=== PATIENT | male | born 1955 | race Caucasian/White ===

== ENCOUNTER → 2016-09-24 | Outpatient (CLI) | payer MEDICARE | END | disposition home or self-care (01) | LOC: CFH 08:14 | PROVIDERS: ATTEND Internal Medicine Pulmonary Disease | DX: J43.2 Centrilobular emphysema (principal); J84.10 Pulmonary fibrosis, unspecified; J98.11 Atelectasis | CPT/HCPCS: 71250 ==

== ENCOUNTER → 2017-04-20 | Outpatient (CLI) | payer MEDICARE ==
[~2017-04-20] MED LIST: ALBU18HF INH; AMOX1TAB12 PO; FLUT12HF3 IH; FLUT9.9S NAS; LORA10TA62 PO; PRED20TA PO; TIOT18CA INH; TIOT4MIS5 INH
== END | disposition home or self-care (01) ==
LOC: CFH 09:32
PROVIDERS: ATTEND Internal Medicine
DX: R91.8 Other nonspecific abnormal finding of lung field (principal); M48.54XA Collapsed vertebra, not elsewhere classified, thoracic region, initial encounter for fracture
CPT/HCPCS: 71020

== ENCOUNTER 2018-04-02 13:06 | Inpatient (IN) | payer MEDICARE ==
[~2018-04-02] VITALS: Ht 180.3 cm; Wt 61.0 kg
[2018-04-02] MEDS ORDERED: ALBUTEROL/IPRATROPIUM 2.5MG/0.5MG, 3 ML ONE (13:14)
[2018-04-02] MEDS ORDERED: SODIUM CHLORIDE FLUSH 10ML SYR IVF ONE (13:30)
[2018-04-02] MEDS ORDERED: methylPREDNISolone SOD SUCC 125 MG/2 ML IVP ONE (13:30)
[2018-04-02] MEDS ORDERED: methylPREDNISolone SOD SUCC 125 MG/2 ML ONE (13:34)
[2018-04-02] MEDS ORDERED: ALBU8.5H8 IH (13:42)
[2018-04-02] MEDS ORDERED: MONT10TA9 PO (13:42)
[2018-04-02 13:44] LABS: BASOPHILS # (AUTO) 0.02 x10^3/uL (0-0.1); BASOPHILS % (AUTO) 0 % (0-1); EOSINOPHILS # (AUTO) 0.01 x10^3/uL (0-0.4); EOSINOPHILS % (AUTO) 0 % (1-7); LYMPHOCYTES # (AUTO) 0.57 x10^3/uL (1-3.4); LYMPHOCYTES % (AUTO) 10 % (22-44); MD NO; MEAN CORPUSCULAR HEMOGLOBIN 33.2 pg (27.5-34.5); MEAN CORPUSCULAR HGB CONC 33.7 g/dL (33.2-36.2); MEAN CORPUSCULAR VOLUME 98.6 fL (81-97); MEAN PLATELET VOLUME 8.5 fL (7.4-10.4); MONOCYTES # (AUTO) 0.51 x10^3/uL (0.2-0.8); MONOCYTES % (AUTO) 9 % (2-9); NEUTROPHILS # (AUTO) 4.83 x10^3/uL (1.8-6.8); NEUTROPHILS % (AUTO) 81 % (42-75); PLATELET COUNT 209 x10^3/uL (130-400); RED CELL DISTRIBUTION WIDTH 14.9 % (9.4-14.8)
[2018-04-02 13:55] LABS: ALBUMIN 3.8 g/dL (3.4-5.0); ANION GAP 6 mmol/L (5-15); CALCIUM 9.1 mg/dL (8.5-10.1); CHLORIDE 102 mmol/L (98-107)
[2018-04-02 14:02] LABS: ALANINE AMINOTRANSFERASE 70 U/L (12-78); ALKALINE PHOSPHATASE 149 U/L (45-117); BILIRUBIN,TOTAL 0.7 mg/dL (0.2-1.0); CREATININE 0.69 mg/dL (0.7-1.3); TOTAL PROTEIN 7.4 g/dL (6.4-8.2); TROPONIN I < 0.015 ng/mL (0.000-0.045)
[2018-04-02] MEDS ORDERED: DOXYCYCLINE 100 MG in DEXTROSE 5% 250 ML IV ONE (14:30)
[2018-04-02] MEDS: SODIUM CHLORIDE 0.9% 1,000 ML IV SCH (14:32)
[2018-04-02 14:44] LABS: RAPID INFLUENZA A Negative (Negative); RAPID INFLUENZA B Negative (Negative)
[2018-04-02] MEDS: ALBUTEROL/IPRATROPIUM 2.5MG/0.5MG, 3 ML NPPB SCH (14:52)
[2018-04-02] MEDS ORDERED: ACETAMINOPHEN 325 MG TABLET PO PRN (15:00)
[2018-04-02] MEDS ORDERED: ENALAPRILAT 1.25 MG/ML, 2ML IVPush PRN (15:00)
[2018-04-02 15:59] VITALS: BP 117/75
[2018-04-02] MEDS ORDERED: IPRATROPIUM 0.5 MG/2.5 ML INHA NPPB SCH (16:00)
[2018-04-02] MEDS: AZITHROMYCIN 500 MG in SODIUM CHLORIDE 0.9% 250 ML IV SCH (17:50)
[2018-04-02] MEDS: ENOXAPARIN 40 MG/0.4 ML SQ SCH (17:51)
[2018-04-02] MEDS: GUAIFENESIN 200 MG TABLET PO SCH ×2 (17:51→20:17)
[2018-04-02] MEDS: ALBUTEROL/IPRATROPIUM 2.5MG/0.5MG, 3 ML HHN SCH (19:54)
[2018-04-02] MEDS: methylPREDNISolone SOD SUCC 125 MG/2 ML IVPush SCH (20:15)
[2018-04-02 21:07] VITALS: BP 105/71
[2018-04-03 01:04] VITALS: BP 113/78
[2018-04-03] MEDS: methylPREDNISolone SOD SUCC 125 MG/2 ML IVPush SCH ×4 (02:40→20:00)
[2018-04-03] MEDS: SODIUM CHLORIDE 0.9% 1,000 ML IV SCH (02:40)
[2018-04-03] MEDS: ALBUTEROL/IPRATROPIUM 2.5MG/0.5MG, 3 ML HHN SCH ×2 (03:00→10:00)
[2018-04-03] MEDS: GUAIFENESIN 200 MG TABLET PO SCH ×4 (05:15→20:22)
[2018-04-03 05:18] LABS: BASOPHILS % (AUTO) 0 % (0-1); EOSINOPHILS % (AUTO) 0 % (1-7); LYMPHOCYTES # (AUTO) 0.38 x10^3/uL (1-3.4); LYMPHOCYTES % (AUTO) 8 % (22-44); MD NO; MEAN CORPUSCULAR HEMOGLOBIN 33.5 pg (27.5-34.5); MEAN CORPUSCULAR HGB CONC 33.9 g/dL (33.2-36.2); MEAN PLATELET VOLUME 8.8 fL (7.4-10.4); MONOCYTES # (AUTO) 0.09 x10^3/uL (0.2-0.8); MONOCYTES % (AUTO) 2 % (2-9); NEUTROPHILS # (AUTO) 4.42 x10^3/uL (1.8-6.8); NEUTROPHILS % (AUTO) 90 % (42-75); PLATELET COUNT 181 x10^3/uL (130-400); RED BLOOD COUNT 4.58 x10^6/uL (4.38-5.82); RED CELL DISTRIBUTION WIDTH 15.1 % (9.4-14.8)
[2018-04-03 05:21] LABS: ALANINE AMINOTRANSFERASE 59 U/L (12-78); ANION GAP 9 mmol/L (5-15); CALCIUM 8.2 mg/dL (8.5-10.1); CHLORIDE 106 mmol/L (98-107); CREATININE 0.46 mg/dL (0.7-1.3)
[2018-04-03 05:23] LABS: ALKALINE PHOSPHATASE 117 U/L (45-117); BILIRUBIN,TOTAL 0.4 mg/dL (0.2-1.0); TOTAL PROTEIN 6.6 g/dL (6.4-8.2)
[2018-04-03 06:47] VITALS: BP 128/87
[2018-04-03] MEDS: MONTELUKAST 10 MG TABLET PO SCH (08:43)
[2018-04-03] MEDS ORDERED: ALBUTEROL/IPRATROPIUM 2.5MG/0.5MG, 3 ML NPPB PRN (10:30)
[2018-04-03 12:20] VITALS: BP 124/81
[2018-04-03] MEDS: ALBUTEROL/IPRATROPIUM 2.5MG/0.5MG, 3 ML NPPB SCH ×4 (14:15→22:07)
[2018-04-03] MEDS: ENOXAPARIN 40 MG/0.4 ML SQ SCH (14:24)
[2018-04-03] MEDS ORDERED: SODIUM CHLORIDE 0.9% 1,000 ML IV SCH (14:32)
[2018-04-03] MEDS: AZITHROMYCIN 500 MG in SODIUM CHLORIDE 0.9% 250 ML IV SCH (14:43)
[2018-04-03 19:09] VITALS: BP 130/81
[2018-04-04 01:26] VITALS: BP 123/72
[2018-04-04] MEDS: ALBUTEROL/IPRATROPIUM 2.5MG/0.5MG, 3 ML NPPB SCH ×6 (01:57→22:02)
[2018-04-04] MEDS: methylPREDNISolone SOD SUCC 125 MG/2 ML IVPush SCH ×4 (02:00→20:00)
[2018-04-04] MEDS: GUAIFENESIN 200 MG TABLET PO SCH ×4 (05:16→20:43)
[2018-04-04 06:41] VITALS: BP 116/77
[2018-04-04] MEDS: MONTELUKAST 10 MG TABLET PO SCH (08:32)
[2018-04-04 12:25] VITALS: BP 124/84
[2018-04-04] MEDS: AZITHROMYCIN 500 MG in SODIUM CHLORIDE 0.9% 250 ML IV SCH (15:00)
[2018-04-04] MEDS: ENOXAPARIN 40 MG/0.4 ML SQ SCH (15:00)
[2018-04-04 21:21] VITALS: BP 125/85
[2018-04-04] MEDS: SODIUM CHLORIDE NASAL SPRAY 45ML BOTTLE NAS PRN (22:38)
[2018-04-04] MEDS: TRAZODONE 50MG TABLET PO PRN (22:38)
[2018-04-05] MEDS: methylPREDNISolone SOD SUCC 125 MG/2 ML IVPush SCH ×3 (02:00→18:00)
[2018-04-05 02:06] VITALS: BP 120/76
[2018-04-05] MEDS: ALBUTEROL/IPRATROPIUM 2.5MG/0.5MG, 3 ML NPPB SCH ×7 (02:30→22:17)
[2018-04-05] MEDS: GUAIFENESIN 200 MG TABLET PO SCH ×4 (05:03→21:00)
[2018-04-05 06:42] VITALS: BP 125/83
[2018-04-05] MEDS: MONTELUKAST 10 MG TABLET PO SCH (09:00)
[2018-04-05] MEDS: SODIUM CHLORIDE NASAL SPRAY 45ML BOTTLE NAS PRN (10:50)
[2018-04-05 12:43] VITALS: BP 131/78
[2018-04-05] MEDS: ENOXAPARIN 40 MG/0.4 ML SQ SCH (15:00)
[2018-04-05] MEDS: AZITHROMYCIN 500 MG in SODIUM CHLORIDE 0.9% 250 ML IV SCH (15:00)
[2018-04-05 19:54] VITALS: BP 126/78
[2018-04-05] MEDS: TRAZODONE 50MG TABLET PO PRN (22:51)
[2018-04-06] MEDS: methylPREDNISolone SOD SUCC 125 MG/2 ML IVPush SCH (02:00)
[2018-04-06 02:11] VITALS: BP 116/71
[2018-04-06] MEDS: ALBUTEROL/IPRATROPIUM 2.5MG/0.5MG, 3 ML NPPB SCH ×6 (02:37→22:56)
[2018-04-06] MEDS: GUAIFENESIN 200 MG TABLET PO SCH (05:39)
[2018-04-06] MEDS ORDERED: AZITHROMYCIN 500 MG TABLET PO ONE (07:30)
[2018-04-06] MEDS ORDERED: hydrOXyzine 50MG TABLET PO PRN (07:30)
[2018-04-06 07:45] VITALS: BP 102/56
[2018-04-06] MEDS: MONTELUKAST 10 MG TABLET PO SCH (08:03)
[2018-04-06] MEDS: GUAIFENESIN ER 600 MG TABLET PO SCH ×2 (08:03→20:38)
[2018-04-06] MEDS ORDERED: NAPROXEN 500 MG TABLET PO SCH (12:30)
[2018-04-06 12:58] VITALS: BP 112/74
[2018-04-06] MEDS ORDERED: methylPREDNISolone SOD SUCC 125 MG/2 ML IVPush SCH (14:00)
[2018-04-06] MEDS: ENOXAPARIN 40 MG/0.4 ML SQ SCH (17:04)
[2018-04-06 20:00] VITALS: BP 131/74
[2018-04-06] MEDS: TRAZODONE 50MG TABLET PO PRN (20:44)
[2018-04-07 00:49] VITALS: BP 124/71
[2018-04-07] MEDS: ALBUTEROL/IPRATROPIUM 2.5MG/0.5MG, 3 ML NPPB SCH ×4 (02:24→15:25)
[2018-04-07 05:48] LABS: BASOPHILS # (AUTO) 0.02 x10^3/uL (0-0.1); BASOPHILS % (AUTO) 0 % (0-1); EOSINOPHILS % (AUTO) 0 % (1-7); LYMPHOCYTES # (AUTO) 1.04 x10^3/uL (1-3.4); LYMPHOCYTES % (AUTO) 16 % (22-44); MD NO; MEAN CORPUSCULAR HEMOGLOBIN 33.2 pg (27.5-34.5); MEAN CORPUSCULAR HGB CONC 33.4 g/dL (33.2-36.2); MEAN CORPUSCULAR VOLUME 99.5 fL (81-97); MEAN PLATELET VOLUME 8.6 fL (7.4-10.4); MONOCYTES # (AUTO) 0.86 x10^3/uL (0.2-0.8); MONOCYTES % (AUTO) 13 % (2-9); NEUTROPHILS # (AUTO) 4.72 x10^3/uL (1.8-6.8); NEUTROPHILS % (AUTO) 71 % (42-75); PLATELET COUNT 190 x10^3/uL (130-400); RED BLOOD COUNT 4.31 x10^6/uL (4.38-5.82)
[2018-04-07 05:59] LABS: ALBUMIN 2.7 g/dL (3.4-5.0); ANION GAP 5 mmol/L (5-15); CALCIUM 8.2 mg/dL (8.5-10.1); CHLORIDE 104 mmol/L (98-107)
[2018-04-07 06:04] LABS: ALANINE AMINOTRANSFERASE 88 U/L (12-78); ALKALINE PHOSPHATASE 70 U/L (45-117); BILIRUBIN,TOTAL 0.3 mg/dL (0.2-1.0); CREATININE 0.38 mg/dL (0.7-1.3); TOTAL PROTEIN 5.5 g/dL (6.4-8.2)
[2018-04-07 07:43] VITALS: BP 122/76
[2018-04-07] MEDS: GUAIFENESIN ER 600 MG TABLET PO SCH (08:59)
[2018-04-07] MEDS: MONTELUKAST 10 MG TABLET PO SCH (08:59)
[2018-04-07] MEDS ORDERED: METH4TAB2 PO (10:57)
[2018-04-07 12:53] VITALS: BP 124/77
== END 2018-04-07 17:06 | disposition home or self-care (01) | DRG 189 ==
LOC: ED 13:42 → EDIP 14:02 → 4WST 15:44 → 4EST 04-06 10:05 → DCLOUNGE 04-07 16:50
PROVIDERS: ADMIT Hospitalist; ATTEND Hospitalist
DX: J96.21 Acute and chronic respiratory failure with hypoxia (principal); J44.1 Chronic obstructive pulmonary disease with (acute) exacerbation; E87.1 Hypo-osmolality and hyponatremia; J44.0 Chronic obstructive pulmonary disease with (acute) lower respiratory infection; E44.1 Mild protein-calorie malnutrition; Z68.1 Body mass index [BMI] 19.9 or less, adult; J20.9 Acute bronchitis, unspecified; Z87.891 Personal history of nicotine dependence; Z99.81 Dependence on supplemental oxygen; Z88.8 Allergy status to other drugs, medicaments and biological substances; Z87.01 Personal history of pneumonia (recurrent); D75.89 Other specified diseases of blood and blood-forming organs; R00.0 Tachycardia, unspecified
CPT/HCPCS: 36415; 71045; 80053; 83605; 84145; 84484; 85025; 87040; 87400; 93005; 94640; 99291; G0378; J0456; J1650; J7060; J7620; J2930; J7030; J7050; J7512

== ENCOUNTER 2018-09-09 17:28 | Inpatient (IN) | payer MEDICARE ==
[~2018-09-09] VITALS: Ht 177.8 cm; Wt 62.3 kg
[~2018-09-09 17:28] MED LIST changes: +ALBU8.5H8 IH; +BENZ-17 PO; +CEFD300C37 PO; +DOXY100T PO; +GUAI600T31 PO; +METH4TAB2 PO; +MONT10TA9 PO
--- NOTE | 2018-09-09 17:35 | NUR ---
pt jayson, brought from pcp. report received from ems. pt c/o sob with cough and bilateral chest pain, worse with coughing x 5 days. temp 102.4 lpta per ems. pt given 1000mg tylenol and 500ml ns lpta. ekg taken on arrival by edt. all monitors in place. call light in reach. johanna sinha at bedside for evaluation.
[2018-09-09] MEDS ORDERED: IBUPROFEN 600 MG TABLET PO ONE (18:00)
[2018-09-09] MEDS ORDERED: SODIUM CHLORIDE 0.9% 1,000ML IVBOLUS ONE (18:00)
[2018-09-09] MEDS ORDERED: methylPREDNISolone SOD SUCC 125 MG/2 ML IVP ONE (18:00)
[2018-09-09] MEDS ORDERED: ALBUTEROL/IPRATROPIUM 2.5MG/0.5MG, 3 ML NPPB ONE (18:00)
[2018-09-09] MEDS ORDERED: PLEASE ENTER HEIGHT AND WEIGHT MC SCH (18:00)
[2018-09-09] MEDS ORDERED: ALBUTEROL/IPRATROPIUM 2.5MG/0.5MG, 3 ML ONE (18:04)
[2018-09-09] MEDS ORDERED: IBUPROFEN 800 MG TABLET ONE (18:12)
[2018-09-09] MEDS ORDERED: methylPREDNISolone SOD SUCC 125 MG/2 ML ONE (18:12)
[2018-09-09] MEDS ORDERED: fluticasone NAS (18:32)
[2018-09-09] MEDS ORDERED: PRIM50TA34 PO (18:32)
[2018-09-09] MEDS ORDERED: BUDE10.2 INH (18:32)
[2018-09-09] MEDS ORDERED: spiriva INH (18:32)
[2018-09-09] MEDS ORDERED: albuterol neb NEB (18:32)
[2018-09-09] MEDS ORDERED: ALBU8.5H8 INH (18:32)
[2018-09-09] MEDS ORDERED: LORA10TA62 PO (18:32)
[2018-09-09 18:35] LABS: BASOPHILS # (AUTO) 0.03 x10^3/uL (0-0.1); BASOPHILS % (AUTO) 1 % (0-1); EOSINOPHILS # (AUTO) 0.07 x10^3/uL (0-0.4); EOSINOPHILS % (AUTO) 1 % (1-7); LYMPHOCYTES # (AUTO) 0.76 x10^3/uL (1-3.4); LYMPHOCYTES % (AUTO) 12 % (22-44); MD NO; MEAN CORPUSCULAR HEMOGLOBIN 33.2 pg (27.5-34.5); MEAN CORPUSCULAR VOLUME 97.8 fL (81-97); MEAN PLATELET VOLUME 7.9 fL (7.4-10.4); MONOCYTES # (AUTO) 0.69 x10^3/uL (0.2-0.8); MONOCYTES % (AUTO) 11 % (2-9); NEUTROPHILS % (AUTO) 75 % (42-75); PLATELET COUNT 265 x10^3/uL (130-400); RED BLOOD COUNT 3.36 x10^6/uL (4.38-5.82); RED CELL DISTRIBUTION WIDTH 14.7 % (9.4-14.8)
--- NOTE | 2018-09-09 18:40 | NUR ---
pt educated regarding need for clean catch ua, urinal provided at bedside. pt verbalizes understanding of RN instructions. pt a&o, resps even, mildly labored, work of breathing eased since rt tx. pt instructed not to get up without staff assist, bed locked and in lowest position, call light in reach.
[2018-09-09 18:45] LABS: ALANINE AMINOTRANSFERASE 23 U/L (12-78); ALBUMIN 2.5 g/dL (3.4-5.0); ANION GAP 6 mmol/L (5-15); CALCIUM 8.2 mg/dL (8.5-10.1); CHLORIDE 105 mmol/L (98-107); CREATININE 0.42 mg/dL (0.7-1.3)
[2018-09-09 18:50] LABS: ALKALINE PHOSPHATASE 110 U/L (45-117); BILIRUBIN,TOTAL 0.3 mg/dL (0.2-1.0); TROPONIN I < 0.015 ng/mL (0.000-0.045)
[2018-09-09] MEDS ORDERED: OMNIPAQUE 350 MG/ML, 100ML BOTTLE ONE (19:00)
--- NOTE | 2018-09-09 19:31 | NUR ---
PT BACK FROM CT. JANI.
--- NOTE | 2018-09-09 19:45 | NUR ---
REPORT GIVEN TO NATI ROSENBERG.
[2018-09-09] MEDS ORDERED: LASIX PO (20:40)
--- NOTE | 2018-09-09 20:58 | NUR ---
PT A&O, RESPS EVEN AND UNLABORED. PT DENYING URGE TO VOID, REFUSES TO ATTEMPT. EDMD BROWN NOTIFIED.
[2018-09-09] MEDS ORDERED: AZITHROMYCIN 500 MG in SODIUM CHLORIDE 0.9% 250 ML IV ONE (21:00)
[2018-09-09] MEDS ORDERED: CEFTRIAXONE PMX 1GM/50ML 50 ML IV ONE (21:00)
[2018-09-09] MEDS ORDERED: FUROSEMIDE 20 MG/2 ML IV ONE (21:00)
[2018-09-09] MEDS ORDERED: FUROSEMIDE 20 MG/2 ML ONE (21:03)
[2018-09-09] MEDS ORDERED: CEFTRIAXONE PMX 1GM/50ML 50 ML ONE (21:03)
--- NOTE | 2018-09-09 21:30 | NUR ---
MD Melara at bedside, pt a&o, resps even and unlabored, jason at this time.
--- NOTE | 2018-09-09 21:51 | NUR ---
pt provided urine sample, sample sent to lab.
[2018-09-09 22:07] LABS: MICROSCOPIC NOT IND
[2018-09-09 22:15] LABS: CULTURE INDICATED? NO
[2018-09-09] MEDS ORDERED: ONDANSETRON 2MG/ML, 2ML IVPush PRN (22:30)
[2018-09-09] MEDS ORDERED: ALBUTEROL/IPRATROPIUM 2.5MG/0.5MG, 3 ML HHN PRN (22:30)
--- NOTE | 2018-09-09 22:39 | NUR ---
REPORT GIVEN TO MARTELL ARROELA, PT TO [facility] AT TRANSPORT.
[2018-09-09 23:00] VITALS: BP 96/66
[2018-09-10] MEDS ORDERED: AZITHROMYCIN 500 MG in SODIUM CHLORIDE 0.9% 250 ML IV ONE
[2018-09-10 01:17] VITALS: BP 100/69
[2018-09-10] MEDS: methylPREDNISolone SOD SUCC 40 MG/ML IV SCH ×3 (05:11→21:45)
[2018-09-10] MEDS: ALBUTEROL/IPRATROPIUM 2.5MG/0.5MG, 3 ML NPPB SCH ×4 (05:17→19:42)
[2018-09-10 05:47] LABS: MEAN CORPUSCULAR HGB CONC 34.5 g/dL (33.2-36.2); MEAN CORPUSCULAR VOLUME 98.4 fL (81-97); MEAN PLATELET VOLUME 8.1 fL (7.4-10.4); PLATELET COUNT 268 x10^3/uL (130-400); RED BLOOD COUNT 3.11 x10^6/uL (4.38-5.82); RED CELL DISTRIBUTION WIDTH 14.5 % (9.4-14.8)
[2018-09-10 05:54] LABS: CHLORIDE 106 mmol/L (98-107)
[2018-09-10 06:06] LABS: ANION GAP 7 mmol/L (5-15); CALCIUM 8.1 mg/dL (8.5-10.1); TROPONIN I < 0.015 ng/mL (0.000-0.045)
[2018-09-10 06:11] LABS: BASOPHILS % (AUTO) 0 % (0-1); EOSINOPHILS % (AUTO) 0 % (1-7); LYMPHOCYTES # (AUTO) 0.43 x10^3/uL (1-3.4); LYMPHOCYTES % (AUTO) 16 % (22-44); MD SCAN; MONOCYTES # (AUTO) 0.05 x10^3/uL (0.2-0.8); MONOCYTES % (AUTO) 2 % (2-9); NEUTROPHILS # (AUTO) 2.28 x10^3/uL (1.8-6.8); NEUTROPHILS % (AUTO) 83 % (42-75)
[2018-09-10 07:19] VITALS: BP 114/76
[2018-09-10] MEDS: LEVOFLOXACIN/PMX 750MG/150ML 150 ML IV SCH (07:36)
[2018-09-10] MEDS: BUDESONIDE 0.5 MG/2 ML INHA INH SCH ×2 (10:23→19:42)
[2018-09-10 13:50] VITALS: BP 115/72
[2018-09-10 17:16] LABS: BASOPHILS % (AUTO) 0 % (0-1); EOSINOPHILS % (AUTO) 0 % (1-7); LYMPHOCYTES # (AUTO) 0.47 x10^3/uL (1-3.4); LYMPHOCYTES % (AUTO) 6 % (22-44); MD NO; MEAN CORPUSCULAR HEMOGLOBIN 33.6 pg (27.5-34.5); MEAN CORPUSCULAR HGB CONC 33.8 g/dL (33.2-36.2); MEAN CORPUSCULAR VOLUME 99.3 fL (81-97); MEAN PLATELET VOLUME 7.8 fL (7.4-10.4); MONOCYTES # (AUTO) 0.55 x10^3/uL (0.2-0.8); MONOCYTES % (AUTO) 7 % (2-9); NEUTROPHILS # (AUTO) 7.34 x10^3/uL (1.8-6.8); NEUTROPHILS % (AUTO) 88 % (42-75); PLATELET COUNT 339 x10^3/uL (130-400); RED BLOOD COUNT 3.41 x10^6/uL (4.38-5.82); RED CELL DISTRIBUTION WIDTH 14.3 % (9.4-14.8)
[2018-09-10 19:47] VITALS: BP 107/72
[2018-09-10] MEDS: TRAZODONE 50MG TABLET PO PRN (21:45)
[2018-09-10] MEDS: ENOXAPARIN 40 MG/0.4 ML SQ SCH (21:45)
[2018-09-11 00:09] VITALS: BP 108/73
[2018-09-11] MEDS: methylPREDNISolone SOD SUCC 40 MG/ML IV SCH (05:20)
[2018-09-11 06:05] LABS: CHLORIDE 107 mmol/L (98-107)
[2018-09-11 06:25] LABS: ANION GAP 4 mmol/L (5-15); CREATININE 0.42 mg/dL (0.7-1.3); THYROID STIMULATING HORMONE 0.468 mIU/L (0.358-3.740)
[2018-09-11] MEDS: BUDESONIDE 0.5 MG/2 ML INHA INH SCH ×2 (07:20→20:45)
[2018-09-11] MEDS: ALBUTEROL/IPRATROPIUM 2.5MG/0.5MG, 3 ML NPPB SCH ×4 (07:20→20:45)
[2018-09-11 07:58] VITALS: BP 112/76
[2018-09-11 08:04] LABS: BASOPHILS % (AUTO) 0 % (0-1); EOSINOPHILS % (AUTO) 0 % (1-7); LYMPHOCYTES # (AUTO) 0.46 x10^3/uL (1-3.4); LYMPHOCYTES % (AUTO) 5 % (22-44); MD NO; MEAN CORPUSCULAR HEMOGLOBIN 32.1 pg (27.5-34.5); MEAN CORPUSCULAR HGB CONC 32.5 g/dL (33.2-36.2); MEAN CORPUSCULAR VOLUME 98.8 fL (81-97); MEAN PLATELET VOLUME 8.3 fL (7.4-10.4); MONOCYTES % (AUTO) 3 % (2-9); NEUTROPHILS # (AUTO) 8.87 x10^3/uL (1.8-6.8); NEUTROPHILS % (AUTO) 92 % (42-75); PLATELET COUNT 349 x10^3/uL (130-400); RED BLOOD COUNT 3.15 x10^6/uL (4.38-5.82); RED CELL DISTRIBUTION WIDTH 15.2 % (9.4-14.8)
[2018-09-11] MEDS: LEVOFLOXACIN/PMX 750MG/150ML 150 ML IV SCH (08:14)
[2018-09-11] MEDS: ACETAMINOPHEN 325 MG TABLET PO PRN ×3 (08:29→21:34)
[2018-09-11 13:06] VITALS: BP 119/78
[2018-09-11 20:34] VITALS: BP 102/62
[2018-09-11] MEDS ORDERED: methylPREDNISolone SOD SUCC 40 MG/ML IV SCH (21:00)
[2018-09-11] MEDS: ENOXAPARIN 40 MG/0.4 ML SQ SCH (21:05)
[2018-09-11] MEDS: TRAZODONE 50MG TABLET PO PRN (21:37)
[2018-09-12 01:43] VITALS: BP 113/75
[2018-09-12] MEDS: ALBUTEROL/IPRATROPIUM 2.5MG/0.5MG, 3 ML NPPB SCH ×3 (02:52→11:15)
[2018-09-12 05:55] LABS: CHLORIDE 108 mmol/L (98-107)
[2018-09-12 06:04] LABS: ANION GAP 5 mmol/L (5-15); CALCIUM 8.8 mg/dL (8.5-10.1); CREATININE 0.41 mg/dL (0.7-1.3)
[2018-09-12] MEDS: BUDESONIDE 0.5 MG/2 ML INHA INH SCH (07:20)
[2018-09-12 07:45] VITALS: BP 105/70
[2018-09-12] MEDS: LEVOFLOXACIN/PMX 750MG/150ML 150 ML IV SCH (08:36)
[2018-09-12 13:55] VITALS: BP 105/68
[2018-09-12] MEDS ORDERED: METH4TAB PO (14:21)
[2018-09-12] MEDS ORDERED: LEVO750T26 PO (14:21)
== END 2018-09-12 15:55 | disposition home or self-care (01) | DRG 871 ==
LOC: ED 19:03 → EDIP 21:52 → 4EST 22:42 → DCLOUNGE 09-12 15:38
PROVIDERS: ADMIT Internal Medicine; ATTEND Internal Medicine
DX: A41.9 Sepsis, unspecified organism (principal); J96.21 Acute and chronic respiratory failure with hypoxia; J18.9 Pneumonia, unspecified organism; M48.54XA Collapsed vertebra, not elsewhere classified, thoracic region, initial encounter for fracture; J43.9 Emphysema, unspecified; D63.8 Anemia in other chronic diseases classified elsewhere; I48.91 Unspecified atrial fibrillation; I50.9 Heart failure, unspecified; D70.9 Neutropenia, unspecified; R73.9 Hyperglycemia, unspecified; Z88.8 Allergy status to other drugs, medicaments and biological substances; Z87.891 Personal history of nicotine dependence; Z99.81 Dependence on supplemental oxygen; Z90.49 Acquired absence of other specified parts of digestive tract; Z88.5 Allergy status to narcotic agent
CPT/HCPCS: 36415; 71045; 71275; 80048; 80053; 81003; 82607; 83605; 83880; 84145; 84443; 84484; 85025; 87040; 93005; 93306; 94640; 96360; 96361; G0378; J0456; J0696; J1650; J1956; J7509; J7620; J7626; Q9967; J1940; J2920; J2930; J7030; J7050

== ENCOUNTER → 2019-05-25 | Outpatient (CLI) | payer MEDICARE ==
[~2019-05-25] MED LIST changes: +ALBU8.5H8 INH; +BUDE10.2 INH; +LASIX PO; +LEVO750T26 PO; +METH4TAB PO; +PRIM50TA34 PO; +albuterol neb NEB; +fluticasone NAS; +spiriva INH
== END | disposition home or self-care (01) ==
LOC: PETCFH 08:41
PROVIDERS: ATTEND Nurse Practitioner
DX: J43.9 Emphysema, unspecified (principal); R91.8 Other nonspecific abnormal finding of lung field
CPT/HCPCS: 78815; A9552

== ENCOUNTER → 2019-06-19 | Outpatient (CLI) | payer MEDICARE ==
[~2019-06-19] MED LIST changes: +MONT10TA11 PO; -MONT10TA9 PO
== END | disposition home or self-care (01) ==
LOC: LAB 09:45
PROVIDERS: ATTEND Nurse Practitioner
DX: J43.9 Emphysema, unspecified (principal)
CPT/HCPCS: 36600; 82803

== ENCOUNTER 2020-11-19 07:04 | Observation (INO) | payer MEDICARE ==
[~2020-11-19] VITALS: Ht 177.8 cm; Wt 60.0 kg
[~2020-11-19 07:04] MED LIST changes: +LORA-59 PO; -LORA10TA62 PO; -MONT10TA11 PO; +MONT10TA17 PO
--- NOTE | 2020-11-19 07:16 | NUR ---
jayson after waking up at 0400 this morning with chest pain radiating to L. arm. pt denies cardiac history. hx copd. pt to postioned to comfort in bed. attached to monitors. vss. nadn. Dr. Odom to bedside for evaluation.
[2020-11-19] MEDS ORDERED: SODIUM CHLORIDE FLUSH 10ML SYR IVF ONE (07:30)
--- NOTE | 2020-11-19 07:50 | NUR ---
LAB IN ROOM. PT REPOSTIONED. VSS. GUNTER.
[2020-11-19 07:57] LABS: BASOPHILS % (AUTO) 1 % (0-1); EOSINOPHILS % (AUTO) 1 % (1-7); LYMPHOCYTES % (AUTO) 8 % (22-44); MEAN CORPUSCULAR HEMOGLOBIN 33.2 pg (27.5-34.5); MEAN CORPUSCULAR HGB CONC 33.9 g/dL (33.2-36.2); MEAN PLATELET VOLUME 8.1 fL (7.4-10.4); MONOCYTES % (AUTO) 4 % (2-9); NEUTROPHILS % (AUTO) 86 % (42-75); PLATELET COUNT 173 x10^3/uL (130-400); RED BLOOD COUNT 4.57 x10^6/uL (4.38-5.82); RED CELL DISTRIBUTION WIDTH 13.8 % (9.4-14.8)
[2020-11-19 08:06] LABS: ALANINE AMINOTRANSFERASE 32 U/L (12-78); ALBUMIN 3.4 g/dL (3.4-5.0); ANION GAP 12 mmol/L (5-15); CALCIUM 8.7 mg/dL (8.5-10.1); CHLORIDE 92 mmol/L (98-107); CREATININE 0.39 mg/dL (0.7-1.3)
[2020-11-19 08:10] LABS: ALKALINE PHOSPHATASE 111 U/L (45-117); BILIRUBIN,TOTAL 0.7 mg/dL (0.2-1.0); TOTAL PROTEIN 6.6 g/dL (6.4-8.2); TROPONIN I < 0.015 ng/mL (0.000-0.045)
[2020-11-19] MEDS ORDERED: ACETAMINOPHEN 500 MG TABLET PO ONE (08:30)
[2020-11-19] MEDS ORDERED: ACETAMINOPHEN 500 MG TABLET ONE (08:41)
[2020-11-19] MEDS: POTASSIUM CHLORIDE 40 MEQ in LACTATED RINGERS 1,000 ML IV SCH ×3 (08:46→23:09)
[2020-11-19] MEDS ORDERED: ALBUTEROL SULFATE 2.5 MG/3 ML ONE (08:58)
[2020-11-19] MEDS ORDERED: ALBUTEROL SULFATE 2.5 MG/3 ML NPPB ONE (09:00)
[2020-11-19] MEDS ORDERED: ONDANSETRON ODT 4 MG PO PRN (09:30)
[2020-11-19] MEDS ORDERED: ACETAMINOPHEN 325 MG TABLET PO PRN (09:30)
[2020-11-19] MEDS ORDERED: NITROGLYCERIN 0.4 MG BOTTLE (25 TABS) SL PRN ×2 (09:30)
[2020-11-19] MEDS ORDERED: ONDANSETRON 2MG/ML, 2ML IVPush PRN (09:30)
[2020-11-19] MEDS ORDERED: morphine SULFATE 10 MG/ML, 1ML IVPush PRN (09:30)
[2020-11-19] MEDS ORDERED: NITROGLYCERIN 0.4 MG/SPRAY SL PRN (09:30)
--- NOTE | 2020-11-19 10:01 | NUR ---
REPORT CALLED TO JM MOURA. PT TRANSFERED TO [facility].
[2020-11-19 10:06] LABS: TROPONIN I < 0.015 ng/mL (0.000-0.045)
[2020-11-19 10:14] VITALS: BP 129/76
[2020-11-19] MEDS ORDERED: HEPARIN 5,000 UNITS/ML, 1ML ONE (11:42)
[2020-11-19] MEDS: HEPARIN 5,000 UNITS/ML, 1ML SQ SCH ×2 (11:46→20:09)
[2020-11-19 11:54] VITALS: BP 129/76
[2020-11-19] MEDS ORDERED: ALBUTEROL/IPRATROPIUM 2.5MG/0.5MG, 3 ML ONE (12:57)
[2020-11-19] MEDS: ALBUTEROL SULFATE 2.5 MG/3 ML NPPB SCH ×3 (13:10→23:00)
[2020-11-19 14:25] LABS: ANION GAP 6 mmol/L (5-15); CALCIUM 9.3 mg/dL (8.5-10.1); CHLORIDE 96 mmol/L (98-107); CREATININE 0.46 mg/dL (0.7-1.3)
[2020-11-19 14:29] LABS: TROPONIN I < 0.015 ng/mL (0.000-0.045)
[2020-11-19 14:53] VITALS: BP 126/81
[2020-11-19] MEDS ORDERED: HYDR25TA6 PO (19:29)
[2020-11-19 19:58] VITALS: BP 114/78
[2020-11-19] MEDS: TIOTROPIUM BROMIDE 18 MCG/INH INH SCH (20:00)
[2020-11-19] MEDS: TEMPLATE NON-FORMULARY MED. (Budesonide/Formoterol Fumarate (Symbicort 160-4.5 Mcg Inhaler INH SCH (20:09)
[2020-11-19] MEDS ORDERED: PRIMIDONE 50 MG TABLET PO SCH (21:00)
[2020-11-19] MEDS ORDERED: MONTELUKAST 10 MG TABLET PO SCH (21:00)
[2020-11-19] MEDS ORDERED: DIPHENHYDRAMINE 25 MG CAPSULE PO PRN (23:00)
[2020-11-20 01:54] VITALS: BP 124/81
[2020-11-20] MEDS: ALBUTEROL SULFATE 2.5 MG/3 ML NPPB SCH ×4 (03:00→14:20)
[2020-11-20] MEDS: HEPARIN 5,000 UNITS/ML, 1ML SQ SCH ×3 (04:30→13:29)
[2020-11-20] MEDS: POTASSIUM CHLORIDE 40 MEQ in LACTATED RINGERS 1,000 ML IV SCH (05:49)
[2020-11-20] MEDS ORDERED: ASPIRIN 325 MG TABLET EC PO SCH (06:00)
[2020-11-20] MEDS ORDERED: MAGNESIUM SULFATE 1 GM in SODIUM CHLORIDE 0.9% 50 ML IV ONE (07:00)
[2020-11-20] MEDS ORDERED: POTASSIUM CHLORIDE 20 MEQ TAB.ER.PRT PO ONE ×2 (07:00)
[2020-11-20 07:12] VITALS: BP 120/75
[2020-11-20] MEDS ORDERED: MAGNESIUM SULFATE/D5W 100 ML IVPB ONE (07:30)
[2020-11-20] MEDS ORDERED: REGADENOSON 0.4 MG/5 ML SYRINGE ONE (08:05)
[2020-11-20] MEDS: TEMPLATE NON-FORMULARY MED. (Budesonide/Formoterol Fumarate (Symbicort 160-4.5 Mcg Inhaler INH SCH (08:08)
[2020-11-20] MEDS: TIOTROPIUM BROMIDE 18 MCG/INH INH SCH (08:10)
[2020-11-20 12:37] VITALS: BP 116/76
== END 2020-11-20 16:33 | disposition home or self-care (01) ==
LOC: SUATTDRO 09:21 → ED 10:14 → ORIP 10:22 → 5SO 11:40
PROVIDERS: ADMIT Family Medicine; ATTEND Family Medicine
DX: R07.89 Other chest pain (principal); J96.11 Chronic respiratory failure with hypoxia; J43.9 Emphysema, unspecified; E87.1 Hypo-osmolality and hyponatremia; E87.6 Hypokalemia; H54.61 Unqualified visual loss, right eye, normal vision left eye; I11.0 Hypertensive heart disease with heart failure; I50.9 Heart failure, unspecified; I73.9 Peripheral vascular disease, unspecified; Z79.899 Other long term (current) drug therapy; Z72.89 Other problems related to lifestyle
CPT/HCPCS: 36415; 71045; 78452; 80053; 83735; 84484; 85025; 93005; 93017; 94640; 96365; 96366; 96368; 96372; 99285; A9502; G0378; J1644; J2785; J3480; J7120; J7613; Q0163; 80048

== ENCOUNTER 2021-01-28 23:01 | Emergency (ER) | payer MEDICARE ==
[~2021-01-28] VITALS: Ht 177.8 cm; Wt 60.0 kg
[2021-01-29 04:24] VITALS: BP 142/80
== END 2021-01-29 04:26 | disposition home or self-care (01) ==
LOC: ED 23:59
DX: R10.32 Left lower quadrant pain (principal); R10.12 Left upper quadrant pain; Z87.891 Personal history of nicotine dependence
CPT/HCPCS: 36415; 71045; 74177; 80053; 83690; 85025; 96361; 96374; 96375; 96376; 99285; J2270; J2405; J7030; Q9967